=== PATIENT | male | born 1960 | race Caucasian/White ===

== ENCOUNTER 2018-02-14 13:48 | Outpatient (CLI) | payer OTHER ==
--- NOTE | 2018-02-14 16:32 | RAD ---
TWO VIEWS LEFT HAND: INDICATION: Disability evaluation. 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 There is healed fracture deformity involvin g the proximal 4th metacarpal shaft. There is a healed fracture deformity involving the small finger metacarpal neck. There is scattered osteoarthrosis of the IP joints of the left hand. There is mod erate radiocarpal osteoarthrosis. 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 POS: [facility]
== END 2018-02-14 13:49 | disposition home or self-care (01) ==
LOC: NAV RAD 13:48
PROVIDERS: ATTEND Family Medicine
DX: M79.642 Pain in left hand (principal); M19.042 Primary osteoarthritis, left hand